=== PATIENT | male | born 1985 | race African-American/Black ===

== ENCOUNTER 2017-02-26 04:52 | Emergency (ER) | payer MEDICAID ==
[~2017-02-26] VITALS: Ht 175.3 cm; Wt 86.0 kg
[2017-02-26] MEDS ORDERED: ALBUTEROL (0.083%) 2.5MG/3ML NEB HHN STA (06:28)
[2017-02-26 08:17] VITALS: BP 157/100
== END 2017-02-26 08:20 | disposition home or self-care (01) ==
LOC: ER 04:52
DX: J98.01 Acute bronchospasm (principal); I10 Essential (primary) hypertension
CPT/HCPCS: 99283; J7611; Z7610